=== PATIENT | female | born 1950 | race Caucasian/White ===

== ENCOUNTER → 2020-12-28 | Outpatient (CLI) | payer OTHER ==
[~2020-12-28] VITALS: Ht 167.6 cm; Wt 85.7 kg
[~2020-12-28] MED LIST: ASA81BEC PO; B-125000 MC1 PO; CELEBREX 200 M200 MG PO; CHROMIUM PICO400 MCG PO; LEVOFLOXACIN; LISINOPRIL2.5 MG PO; LIVALO4 MG PO; MACROBID 100 M100 M1 PO; NEURONTIN300 MG PO; PLAVIX 75 MG TA75 MG PO; SUPER THERAVIT1 EACH PO; TRULICITY1.5 MG/0.5 SUBQ; TYLENOL SINUS1 EAC1; [UNRECOGNIZED DRUG - OTHER]
[2020-12-28 07:54] VITALS: BP 150/68
[2020-12-28 08:17] LABS: HEMATOCRIT 41.7 % (37.0-47.0); HEMOGLOBIN 13.6 gm/dL (12.0-15.0); MCH 29.7 pg (26.0-34.0); MCHC 32.6 g/dL (28.0-37.0); RBC 4.58 mil/uL (4.20-5.00); RDW 12.8 % (10.5-14.5); WBC 7.9 thou/uL (4.0-11.0)
[2020-12-28 08:31] LABS: CALCIUM 9.6 mg/dL (8.5-10.1); POTASSIUM 3.8 mmol/L (3.5-5.1)
== END | disposition home or self-care (01) ==
LOC: CATH 06:43
PROVIDERS: ATTEND Nuclear Medicine Nuclear Cardiology
DX: I70.248 Atherosclerosis of native arteries of left leg with ulceration of other part of lower leg (principal); L97.929 Non-pressure chronic ulcer of unspecified part of left lower leg with unspecified severity; I70.1 Atherosclerosis of renal artery; I10 Essential (primary) hypertension; I25.10 Atherosclerotic heart disease of native coronary artery without angina pectoris; E11.9 Type 2 diabetes mellitus without complications; E78.5 Hyperlipidemia, unspecified; Z98.890 Other specified postprocedural states; Z79.899 Other long term (current) drug therapy; Z90.710 Acquired absence of both cervix and uterus; Z79.4 Long term (current) use of insulin; Z87.891 Personal history of nicotine dependence